=== PATIENT | female | born 1970 | race Caucasian/White ===

== ENCOUNTER 2017-06-25 09:17 | Emergency (ER) | payer BC ==
--- NOTE | 2017-06-25 10:45 | EDM.PDOC ---
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 She states she was told last month she had a polyp on her cervix during a routine Pap smear. That month she had missed her menses. She has had vaginal bleeding for the past 7 days and is concerned as she has been going through a pad per hour. She believes that the "polyp has burst" and has the expectation that this could be cauterized here through the emergency room. She denies any abdominal pain, nausea, vomiting, diarrhea or constipation. He denies any fever, chills, chest pain or shortness of breath. She denies any pain or cramping. Denies any dysuria or change in bowel pattern. Has a past medical history of abnormal Pap smears, although unsure definitive reason. Was told this cervical polyp was "normal" and to have her next PAP in 3 years. Patient is concerned, "I want one every year" due to family history of ovarian cancer. Review of systems: As per history of present illness and below otherwise all systems reviewed and negative. Past medical history: As per history of present illness and as reviewed below otherwise noncontributory. Surgical history: As per history of present illness and as reviewed below otherwise noncontributory. Social history: No reported history of drug or alcohol abuse. Family history: As per history of present illness and as reviewed below otherwise noncontributory. Physical exam: General: Well-developed and well-nourished 46 she'll female. Alert and oriented. Nontoxic appearing and in no acute distress. HEENT: Atraumatic, normocephalic, pupils equal and reactive bilaterally, negative for conjunctival pallor or scleral icterus, mucous membranes moist, throat clear, neck supple, nontender, trachea midline. No drooling or trismus noted. No meningeal signs Lungs: Clear to auscultation, breath sounds equal bilaterally, chest nontender. Heart: S1S2, regular rate and rhythm without overt murmur Abdomen: Soft, nondistended, nontender. Negative for masses or hepatosplenomegaly. Negative for costovertebral tenderness. Pelvis: Stable nontender. Genitourinary: This was done with a hat liner at the bedside. The external genitalia appears within normal limits. There was a moderate amount of blood noted in the vaginal canal. Able to visualize the cervical os, small polyp noted to the 11 o'clock position. Small amount of trickling noted from the cervical os. Cervical motion tenderness via bimanual. Rectal: Tone intact. Skin: Intact, warm, dry. No lesions or rashes noted. Extremities: Atraumatic, negative for cords or calf pain. Neurovascular unremarkable. Neuro: Awake, alert, oriented. Cranial nerves II through XII unremarkable. Cerebellum unremarkable. Motor and sensory unremarkable throughout. Exam nonfocal. Notes: A pelvic exam was completed with a hat liner at the bedside. Lab work is within normal limits. Patient expresses great concern that she would like further workup done. An u/s has been ordered. Will create a follow up appointment for her with an OBGYN PCP for further management. Uterine fibroid noted on u/s, otherwise unremarkable pelvic ultrasound. Diagnostics: CBC, INR, urine , transvaginal ultrasound Therapeutics: [] Impression: Dysfunctional uterine bleeding Plan: 1. Your lab work was normal today (hemoglobin/bleeding time). 2. Please establish care with an OBGYN provider for further management of your heavy menses/cervical polyp. We made an appointment for you to see Natacha Hill (OBGYN/Women's Health Provider) for tomorrow, 06/26/2017, at 0930am [facility]. 3. Return to the ED as needed and as discussed. Definitive disposition and diagnosis as appropriate pending reevaluation and review of above. 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 (See Below) Other OB/BYN History: polyp; cervix Musculoskeletal History: Reports: None Neurological History: Reports: None Psychiatric History: Reports: Anxiety, Depression Endocrine/Metabolic History: Reports: None Hematologic History: Reports: None Immunologic History: Reports: None Oncologic (Cancer) History: Reports: None Dermatologic History: Reports: None - Past Surgical History Head Surgeries/Procedures: Reports: None HEENT Surgical History: Reports: None Cardiovascular Surgical History: Reports: None Respiratory Surgical History: Reports: None GI Surgical History: Reports: None Female Surgical History: Reports: Tubal Ligation Endocrine Surgical History: Reports: None Neurological Surgical History: Reports: None Musculoskeletal Surgical History: Reports: None Oncologic Surgical History: Reports: None Dermatological Surgical History: Reports: None Social & Family History - Family History Family Medical History: Noncontributory - Tobacco Use Smoking Status *Q: Never Smoker Second Hand Smoke Exposure: No - Caffeine Use Caffeine Use: Reports: Coffee - Recreational Drug Use Recreational Drug Use: No ED ROS GENERAL - Review of Systems Review Of Systems: ROS reveals no pertinent complaints other than HPI. ED EXAM, GENERAL - Physical Exam Exam: See Below (See dictation) Course - Vital Signs Last Recorded V/S: Last Vital Signs Temp 98.1 F 06/25/17 11:34 Pulse 74 06/25/17 11:34 Resp 16 06/25/17 11:34 BP 130/93 H 06/25/17 11:34 Pulse Ox 99 06/25/17 11:34 - Orders/Labs/Meds Labs: Laboratory Tests 06/25/17 06/25/17 06/25/17 Range/Units 09:33 10:14 10:14 WBC 5.23 (4.0-11.0) K/uL RBC 3.90 L (4.30-5.90) M/uL Hgb 12.1 (12.0-16.0) g/dL Hct 33.9 L (36.0-46.0) % MCV 86.9 (80.0-98.0) fL MCH 31.0 (27.0-32.0) pg MCHC 35.7 (31.0-37.0) g/dL RDW Std Deviation 41.3 (28.0-62.0) fl RDW Coeff of Christina 13 (11.0-15.0) % Plt Count 248 (150-400) K/uL MPV 10.60 (7.40-12.00) fL Neut % (Auto) 54.9 (48.0-80.0) % Lymph % (Auto) 37.1 (16.0-40.0) % [place] % (Auto) 6.5 (0.0-15.0) % Eos % (Auto) 1.1 (0.0-7.0) % Baso % (Auto) 0.4 (0.0-1.5) % Neut # (Auto) 2.9 (1.4-5.7) K/uL Lymph # (Auto) 1.9 (0.6-2.4) K/uL [place] # (Auto) 0.3 (0.0-0.8) K/uL Eos # (Auto) 0.1 (0.0-0.7) K/uL Baso # (Auto) 0.0 (0.0-0.1) K/uL Nucleated RBC % 0.0 /100WBC Nucleated RBCs # 0 K/uL INR 1.00 Urine HCG, Qual NEGATIVE (NEGATIVE) Departure - Departure Time of Disposition: 11:44 Disposition: Home, Self-Care 01 Clinical Impression: Dysfunctional uterine bleeding - Discharge Information Instructions: Dysfunctional Uterine Bleeding Referrals: Lidia Caba DO [Primary Care Provider] - Forms: ED Department Discharge Additional Instructions: The following information is given to patients seen in the emergency department who are being discharged to home. This information is to outline your options for follow-up care. We provide all patients seen in our emergency department with a follow-up referral. The need for follow-up, as well as the timing and circumstances, are variable depending upon the specifics of your emergency department visit. If you don't have a primary care physician on staff, we will provide you with a referral. We always advise you to contact your personal physician following an emergency department visit to inform them of the circumstance of the visit and for follow-up with them and/or the need for any referrals to a consulting specialist. The emergency department will also refer you to a specialist when appropriate. This referral assures that you have the opportunity for follow-up care with a specialist. All of these measure are taken in an effort to provide you with optimal care, which includes your follow-up. Under all circumstances we always encourage you to contact your private physician who remains a resource for coordinating your care. When calling for follow-up care, please make the office aware that this follow-up is from your recent emergency room visit. If for any reason you are refused follow-up, please contact the [facility] Emergency Department at and asked to speak to the emergency department charge nurse. [facility] Primary Care: Natacha Ray OBGYN/Women's Health [employer] [address] [place] [id number] 1. Your lab work was normal today (hemoglobin/bleeding time). 2. Please establish care with an OBGYN provider for further management of your heavy menses/cervical polyp. We made an appointment for you to see Natacha Hill (OBGYN/Women's Health Provider) for tomorrow, 06/26/2017, at 0930am [facility]. 3. Return to the ED as needed and as discussed.
--- NOTE | 2017-06-25 11:53 | US ---
EXAMINATION: Transvaginal pelvic ultrasound HISTORY: Heavy vaginal bleeding COMPARISON: None TECHNIQUE: Grayscale, color Doppler imaging obtained transvaginally. FINDINGS: The uterus is normal in size, and contour. There is a heterogeneous 2.6 cm area within the anterior fundus consistent with a fibroid. Endometrial stripe measures 1.8 cm. Few small notable cons ists are noted. Both the left and right ovaries are normal in size, contour, and echogenicity. Small follicles are no kamilah with a dominant 2.5 cm left ovarian follicle. No adnexal masses. Normal color Doppler flow bilate rally. No significant free pelvic fluid. IMPRESSION: 1. There is a 2.6 cm anterior uterine fibroid, otherwise unremarkable pelvic ultrasound. 2. Mildly prominent endometrial stripe at 1.8 cm.
== END 2017-06-25 12:08 | disposition home or self-care (01) ==
LOC: MW.ED 09:17
DX: N93.8 Other specified abnormal uterine and vaginal bleeding (principal); Z79.899 Other long term (current) drug therapy
CPT/HCPCS: 36415; 76830; 76830-26; 81025; 85025; 85610; 99284; 99284-25

== ENCOUNTER 2017-07-15 08:21 | Day surgery (SDC) | payer BC ==
[~2017-07-15 08:21] MED LIST: Lactated Ringers 1,000 ML IV SCH; Sodium Chloride 0.9% 10 ML Syringe FLUSH PRN; Sodium Chloride 0.9% 2.5 ML Syringe FLUSH PRN
[2017-07-15] MEDS ORDERED: Ondansetron 4 MG/2 ML SDV ONE (09:07)
[2017-07-15] MEDS ORDERED: Propofol 200 MG/20 ML SDV ONE (09:07)
[2017-07-15] MEDS ORDERED: Lidocaine 2% 5 ML SDV ONE (09:07)
[2017-07-15] MEDS ORDERED: Midazolam 1 MG/ML 2 ML SDV ONE (09:07)
[2017-07-15] MEDS ORDERED: fentaNYL 250 MCG/5 ML SDV ONE (09:07)
--- NOTE | 2017-07-15 09:23 | PCM.PREANE ---
Preanesthetic Assessment - Anesthesia/Transfusion/Family Hx Anesthesia History: Prior Anesthesia Without Reaction Family History of Anesthesia Reaction: No Transfusion History: No Prior Transfusion(s) Intubation History: Unknown - Review of Systems General: No Symptoms Pulmonary: No Symptoms Cardiovascular: No Symptoms Gastrointestinal: No Symptoms Neurological: No Symptoms Other: Reports: None - Physical Assessment O2 Sat by Pulse Oximetry: 99 Respiratory Rate: 16 Vital Signs: Last Vital Signs Temp 36.4 C 07/15/17 09:05 Pulse 82 07/15/17 09:05 Resp 16 07/15/17 09:05 BP 107/82 07/15/17 09:05 Pulse Ox 99 07/15/17 09:05 Height: 1.65 m Weight: 81.193 kg ASA Class: 2 Mental Status: Alert & Oriented x3 Airway Class: Mallampati = 2 Dentition: Reports: Normal Dentition Thyro-Mental Finger Breadths: 3 Mouth Opening Finger Breadths: 3 ROM/Head Extension: Full Lungs: Clear to Auscultation, Normal Respiratory Effort Cardiovascular: Regular Rate, Regular Rhythm - Allergies Allergies/Adverse Reactions: Allergies Allergy/AdvReac Type Severity Reaction Status Date / Time No Known Allergies Allergy Verified 07/10/17 09:02 - Blood Blood Available: No - Anesthesia Plan Pre-Op Medication Ordered: None - Acknowledgements Anesthesia Type Planned: General Anesthesia Pt an Appropriate Candidate for the Planned Anesthesia: Yes Alternatives and Risks of Anesthesia Discussed w Pt/Guardian: Yes Pt/Guardian Understands and Agrees with Anesthesia Plan: Yes PreAnesthesia Questionnaire HEENT History: Reports: Other (See Below) Other HEENT History: wears glasses Cardiovascular History: Reports: Hypertension Respiratory History: Reports: None Gastrointestinal History: Reports: GERD Genitourinary History: Reports: None 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: Musculoskeletal History: Reports: None Neurological History: Reports: None Psychiatric History: Reports: Anxiety, Depression Endocrine/Metabolic History: Reports: None Hematologic History: Reports: None Immunologic History: Reports: None Oncologic (Cancer) History: Reports: None Dermatologic History: Reports: None - Past Surgical History Head Surgeries/Procedures: Reports: None HEENT Surgical History: Reports: None Cardiovascular Surgical History: Reports: None Respiratory Surgical History: Reports: None GI Surgical History: Reports: None Female Surgical History: Reports: Breast Implant, Tubal Ligation Endocrine Surgical History: Reports: None Neurological Surgical History: Reports: None Musculoskeletal Surgical History: Reports: None Oncologic Surgical History: Reports: None Dermatological Surgical History: Reports: None - SUBSTANCE USE Smoking Status *Q: Never Smoker Second Hand Smoke Exposure: No Recreational Drug Use History: No - HOME MEDS Home Medications: Home Meds Triamterene/Hydrochlorothiazid [Triamterene-HCTZ 37.5-25 MG] 1 cap PO DAILY [History] busPIRone HCl [Buspirone HCl] 15 mg PO BID 06/25/17 [History] Esomeprazole [NexIUM] 40 mg PO DAILY 07/10/17 [History] - CURRENT (IN HOUSE) MEDS Current Meds: Current Medications Lactated Ringer's (Ringers, Lactated) 1,000 mls @ 125 mls/hr IV ASDIRECTED CECIL Sodium Chloride (Saline Flush) 10 ml FLUSH ASDIRECTED PRN PRN Reason: Keep Vein Open Sodium Chloride (Saline Flush) 2.5 ml FLUSH ASDIRECTED PRN PRN Reason: Keep Vein Open Discontinued Medications Fentanyl (Sublimaze) Confirm Administered Dose 250 mcg .ROUTE .STK-MED ONE Stop: 07/15/17 09:08 Lidocaine (Xylocaine-Mpf 2%) Confirm Administered Dose 5 ml .ROUTE .STK-MED ONE Stop: 07/15/17 09:08 Midazolam HCl (Versed 1 Mg/Ml) Confirm Administered Dose 2 mg .ROUTE .STK-MED ONE Stop: 07/15/17 09:08 Ondansetron HCl (Zofran) Confirm Administered Dose 4 mg .ROUTE .STK-MED ONE Stop: 07/15/17 09:08 Propofol (Diprivan 20 Ml) Confirm Administered Dose 200 mg .ROUTE .STK-MED ONE Stop: 07/15/17 09:08
[2017-07-15] MEDS ORDERED: Ketorolac 30 MG/ML SDV ONE (10:30)
--- NOTE | 2017-07-15 10:51 | PCM.OPNOTE ---
- General Post-Op/Procedure Note Date of Surgery/Procedure: 07/15/17 Operative Procedure(s): Hysteroscopic Dilatation and Curettage with myosure Findings: EUA showed normal sized anteverted uterus Right ostia visualised Endometrium mainly atrophic However Fluffy polypoid endometrium noted on the lower uterine anterior wall Pre Op Diagnosis: Abnormal Uterine bleeding. Thickened Endometrium. Simple endometrial hyperplasia Post-Op Diagnosis: same Anesthesia Technique: General LMA Primary Surgeon: Krystle Suarez Pathology: Endometrial curettings Fluid Replacement, Intraop: 1,000 EBL in mLs: 5 Complications: None Condition: Good Free Text/Narrative:: Intake & Output 07/14/17 07/15/17 07/15/17 22:59 06:59 14:59 Output Total 30 Balance -30
--- NOTE | 2017-07-15 11:26 | PCM48HPAN ---
Post Anesthesia Note - EVALUATION WITHIN 48HRS OF ANESTHETIC Vital Signs in Normal Range: Yes Patient Participated in Evaluation: Yes Respiratory Function Stable: Yes Airway Patent: Yes Cardiovascular Function Stable: Yes Hydration Status Stable: Yes Pain Control Satisfactory: Yes Nausea and Vomiting Control Satisfactory: Yes Mental Status Recovered: Yes Resp Rate: 10 - COMMENTS/OBSERVATIONS Free Text/Narrative:: no anesthesia problems
--- NOTE | 2017-07-15 21:19 | OR ---
SURGEON: DAREK OCAMPO DATE OF PROCEDURE: 07/15/2017 PREOPERATIVE DIAGNOSES: A 46-year-old para 2 with abnormal uterine bleeding, simple endometrial hyperplasia without atypia. POSTOPERATIVE DIAGNOSES: A 46-year-old para 2 with abnormal uterine bleeding, simple endometrial hyperplasia without atypia. IV FLUID: 1000 mL. ANESTHESIA: General LMA. ESTIMATED BLOOD LOSS: 5 mL. FLUID DEFICIT: 300 of normal saline. FINDINGS: Anteverted normal-sized uterus, hysteroscopy showed mainly atrophic endometrium with polypoid fluffy endometrium projection into the endometrial cavity from the anterior endometrium in the lower uterine segment. BRIEF HISTORY: The patient is a 46-year-old para 2, who presented with history of menorrhagia. She had a workup done, which showed endometrial cavity with a 3 x 1.5 cm in complex lesion in the endometrium. As a result, endometrial biopsy was done. Results came out as simple endometrial hyperplasia without atypia. The patient was given the option for hysteroscopy, D and C, and she accepted. She understood the risks, benefits, and alternatives. DESCRIPTION OF PROCEDURE: The patient was taken to the operating room where general anesthesia was performed without difficulty. She was placed in the dorsal lithotomy position with Paul stirrups. She was prepared and draped in the normal sterile fashion. A bivalve speculum was used to expose the cervix. A tenaculum was used to grasp the anterior lip of the cervix. The MyoSure hysteroscope was then advanced into the cervical canal by hydrodilation. The pressure of the fluid system was set at 80 mmHg. The aforementioned finding was noted with some polypoid projection from the anterior uterine wall, which was then removed with the MyoSure device. After removal, the MyoSure hysteroscope was removed and size 3 curette was used to curette all the four powers of endometrium. Minimal to moderate tissue was retrieved. After that, the tenaculum was removed from the anterior lip of the cervix, was inspected. Hemostasis was noted. All instrument and pad count were correct x2. The patient tolerated the procedure well and she was taken to recovery room in stable condition. CONNOR HOFFMAN /[id number] WOO
== END 2017-07-15 11:42 | disposition home or self-care (01) ==
LOC: MW.SDS 08:21
PROVIDERS: ATTEND Obstetrics & Gynecology
DX: N85.01 Benign endometrial hyperplasia (principal); I10 Essential (primary) hypertension; K21.9 Gastro-esophageal reflux disease without esophagitis; F41.9 Anxiety disorder, unspecified; Z79.899 Other long term (current) drug therapy
CPT/HCPCS: 36415; 58558; 84703; 85027; 86850; 86900; 86901; J1885; J2250; J2405; J3010; 00940; 88305; J2704

== ENCOUNTER 2017-07-29 07:57 | Day surgery (SDC) | payer BC ==
[2017-07-29] MEDS ORDERED: Lidocaine 2% 5 ML SDV ONE (08:07)
[2017-07-29] MEDS ORDERED: Propofol 200 MG/20 ML SDV ONE ×2 (08:07→08:51)
[2017-07-29] MEDS ORDERED: fentaNYL 100 MCG/2 ML SDV ONE (08:07)
--- NOTE | 2017-07-29 08:44 | PCM.PREANE ---
Preanesthetic Assessment - Anesthesia/Transfusion/Family Hx Anesthesia History: Prior Anesthesia Without Reaction Other Type of Anesthesia Reaction Comment: "I itched for 2 days after my D&C" Family History of Anesthesia Reaction: No Transfusion History: No Prior Transfusion(s) Intubation History: Unknown - Review of Systems General: No Symptoms Pulmonary: No Symptoms Cardiovascular: No Symptoms Gastrointestinal: Other (change in bowel habits) Neurological: No Symptoms Other: Reports: None - Physical Assessment Height: 1.63 m Weight: 81.647 kg ASA Class: 2 Mental Status: Alert & Oriented x3 Airway Class: Mallampati = 2 Dentition: Reports: Normal Dentition Thyro-Mental Finger Breadths: 3 Mouth Opening Finger Breadths: 3 ROM/Head Extension: Full Lungs: Clear to Auscultation, Normal Respiratory Effort Cardiovascular: Regular Rate, Regular Rhythm - Allergies Allergies/Adverse Reactions: Allergies Allergy/AdvReac Type Severity Reaction Status Date / Time No Known Allergies Allergy Verified 07/24/17 13:13 - Blood Blood Available: No - Anesthesia Plan Pre-Op Medication Ordered: None - Acknowledgements Anesthesia Type Planned: MAC Pt an Appropriate Candidate for the Planned Anesthesia: Yes Alternatives and Risks of Anesthesia Discussed w Pt/Guardian: Yes Pt/Guardian Understands and Agrees with Anesthesia Plan: Yes PreAnesthesia Questionnaire HEENT History: Reports: Other (See Below) Other HEENT History: wears glasses Cardiovascular History: Reports: Hypertension Respiratory History: Reports: None Gastrointestinal History: Reports: GERD Genitourinary History: Reports: None 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: Musculoskeletal History: Reports: None Neurological History: Reports: None Psychiatric History: Reports: Anxiety, Depression Endocrine/Metabolic History: Reports: Obesity/BMI 30+ Hematologic History: Reports: None Immunologic History: Reports: None Oncologic (Cancer) History: Reports: None Dermatologic History: Reports: None - Past Surgical History Head Surgeries/Procedures: Reports: None HEENT Surgical History: Reports: None Cardiovascular Surgical History: Reports: None Respiratory Surgical History: Reports: None GI Surgical History: Reports: None Female Surgical History: Reports: Breast Implant, D&C, Tubal Ligation, Other (See Below) (recent hysteroscopy) Endocrine Surgical History: Reports: None Neurological Surgical History: Reports: None Musculoskeletal Surgical History: Reports: None Oncologic Surgical History: Reports: None Dermatological Surgical History: Reports: None - SUBSTANCE USE Smoking Status *Q: Never Smoker Second Hand Smoke Exposure: No Recreational Drug Use History: No - HOME MEDS Home Medications: Home Meds Triamterene/Hydrochlorothiazid [Triamterene-HCTZ 37.5-25 MG] 1 cap PO DAILY [History] busPIRone HCl [Buspirone HCl] 15 mg PO BID 06/25/17 [History] Esomeprazole [NexIUM] 40 mg PO DAILY 07/10/17 [History] - CURRENT (IN HOUSE) MEDS Current Meds: Current Medications Lactated Ringer's (Ringers, Lactated) 1,000 mls @ 125 mls/hr IV ASDIRECTED CECIL Last Admin: 07/29/17 08:26 Dose: 125 mls/hr Sodium Chloride (Saline Flush) 10 ml FLUSH ASDIRECTED PRN PRN Reason: Keep Vein Open Sodium Chloride (Saline Flush) 2.5 ml FLUSH ASDIRECTED PRN PRN Reason: Keep Vein Open Sodium Chloride (Saline Flush) 10 ml FLUSH ASDIRECTED PRN PRN Reason: Keep Vein Open Sodium Chloride (Saline Flush) 2.5 ml FLUSH ASDIRECTED PRN PRN Reason: Keep Vein Open Discontinued Medications Fentanyl (Sublimaze) Confirm Administered Dose 100 mcg .ROUTE .STK-MED ONE Stop: 07/29/17 08:08 Lidocaine (Xylocaine-Mpf 2%) Confirm Administered Dose 5 ml .ROUTE .STK-MED ONE Stop: 07/29/17 08:08 Propofol (Diprivan 20 Ml) Confirm Administered Dose 400 mg .ROUTE .STK-MED ONE Stop: 07/29/17 08:08
[2017-07-29] MEDS ORDERED: Midazolam 1 MG/ML 2 ML SDV ONE (09:17)
[2017-07-29] MEDS ORDERED: Glycopyrrolate 0.2 MG/ML SDV ONE (09:27)
--- NOTE | 2017-07-29 10:10 | PCM.POSTAN ---
POST ANESTHESIA ASSESSMENT - MENTAL STATUS Mental Status: Alert, Oriented - RESPIRATORY Respiratory Status: Respiratory Rate WNL - CARDIOVASCULAR CV Status: Pulse Rate WNL, Blood Pressure Stable - GASTROINTESTINAL GI Status: No Symptoms - PAIN Pain Score: 0 - POST OP HYDRATION Hydration Status: Adequate & Stable - OBSERVATIONS Free Text/Narrative:: no anesthesia problems
--- NOTE | 2017-07-29 10:27 | PCM.OPNOTE ---
- General Post-Op/Procedure Note Date of Surgery/Procedure: 07/29/17 Operative Procedure(s): Diagnostic EGD and colonoscopy Findings: Distal esophagitis. Sigmoid colon polyp. Pre Op Diagnosis: Reflux, change in bowel habits Post-Op Diagnosis: Esophagitis, Sigmoid colon polyp Anesthesia Technique: [facility] [place] Surgeon: Makayla Waldron Condition: Good Free Text/Narrative:: Intake & Output 07/28/17 07/29/17 07/29/17 22:59 06:59 14:59 Intake Total 1550 Balance 1550
--- NOTE | 2017-07-29 12:03 | OR ---
SURGEON: YVAN GUIDRY MD DATE OF PROCEDURE: 07/29/2017 PREOPERATIVE DIAGNOSES: 1. Change in bowel habits. 2. Reflux. POSTOPERATIVE DIAGNOSES: 1. Esophagitis. 2. Sigmoid colon polyp. PROCEDURE PERFORMED: Diagnostic EGD and colonoscopy. ANESTHESIA: MAC. INSTRUMENT USED: Olympus endoscope and colonoscope. EXTENT OF EXAM: Second portion of duodenum, to the cecum. PREPARATION: Fair. LIMITATIONS: None. INDICATIONS: The patient is a 46-year-old female, who for the past 6 months has been experiencing severe retrosternal chest pain consistent with reflux. Along with this, she has had an acute change in her bowel habits. The patient and I discussed the need for diagnostic EGD and colonoscopy. We discussed the procedure, expected perioperative course, and risks including bleeding, infection, or damage to surrounding structures, i.e., perforation. The patient verbalized understanding and wishes to proceed. PROCEDURE IN DETAIL: The patient was brought to the endoscopy suite and placed in the left lateral decubitus position. A time-out was completed verifying the patient's name, age, date of , allergies, and procedure to be performed. A bite block was placed in the patient's mouth and monitored anesthesia care induced. Continuous oxygen was provided via nasal cannula throughout the procedure. After adequate sedation was achieved, a well-lubricated endoscope was placed in the patient's mouth and advanced under direct visualization to the level of the second portion of duodenum. This appeared normal and a photograph was taken. The scope was then fully withdrawn while examining the color, texture, anatomy, and integrity of the upper GI tract mucosa. The intestinal mucosa was free of pathology. The scope was brought into the stomach and a photograph was taken of the pylorus as well as the GE junction. I did not see a hiatal hernia at the GE junction, however, the lower esophageal sphincter did appear somewhat patulous. Biopsies were taken of the gastric antrum, body, and fundus and sent for H. pylori testing and histologic review. The scope was then brought into the distal esophagus and a photograph taken of the GE junction. The patient was noted to have some erythema around the distal esophagus consistent with esophagitis. Three biopsies were taken at this level and sent labeled as esophageal biopsies. The remainder of the esophageal mucosa appeared normal. The scope was then removed and this portion of procedure was terminated. A digital rectal exam was performed. This exam was within normal limits. A well-lubricated colonoscope was inserted into the rectum and advanced under direct visualization to the level of the cecum. The cecum was identified by both visual and anatomic landmarks. A photograph was taken of the cecal cap as well as with the scope retroflexed within the cecum. The scope was then fully withdrawn while examining the color, texture, anatomy, and integrity of the mucosa from the cecum to the anal canal. The patient had fair bowel prep requiring a large amount of irrigation in order to see the mucosal powers adequately. The patient was noted to have a 1 to 2 mm sessile polyp in the distal sigmoid colon. This was removed using a cold biopsy forceps. The scope was then brought into the rectum and retroflexed to allow visualization of the anal canal opening. This appeared normal and a photograph was taken. The scope was then straightened out and fully withdrawn. The cecum to anus time was 7 minutes. The patient tolerated the procedure well and was taken to PACU in stable condition. ENDOSCOPIC DIAGNOSES: 1. Esophagitis. 2. Sigmoid colon polyp. RECOMMENDATIONS: I prescribed the patient omeprazole 40 mg daily. We will follow up in clinic in 2 weeks to review biopsy results and discuss further management. KEEGAN HOFFMAN /[id number]
== END 2017-07-29 10:28 | disposition home or self-care (01) ==
LOC: MW.SDS 07:57
PROVIDERS: ATTEND Surgery
DX: K21.9 Gastro-esophageal reflux disease without esophagitis (principal); R19.4 Change in bowel habit; K63.5 Polyp of colon; K20.9 Esophagitis, unspecified; Z79.899 Other long term (current) drug therapy
CPT/HCPCS: 43239; 45380; J2250; J3010; J7120; J2704